=== PATIENT | female | born 1975 ===

== ENCOUNTER 2020-01-30 19:49 | Inpatient (IN) | payer MEDICAID, OTHER ==
[~2020-01-30] VITALS: Ht 160 cm; Wt 149.8 kg
--- NOTE | 2020-01-30 19:56 | NUR ---
BIB EMS TRANSFERRED FROM [facility] FOR THROMBOCYTOPENIA. PT. STATES SHE PRESENTED THERE WITH FATIGUE, WEAKNESS FOLLOWING HEAVY MENSTRAL CYCLE. WAS SENT TO ED AT [facility] BY DR SONG FOR LABS DUE TO HX OF THROMBOCYTOPENIA. MONITORS CONNECTED. WARM BLANKET PROVIDED
[2020-01-30] MEDS ORDERED: IMMUNE GLOB (GAMUNEX) 10GM/100ML IVPB ONE (21:00)
--- NOTE | 2020-01-30 21:19 | NUR ---
PT RESTING ON [employer]. VSS. NAD. STATES NO ADDITIONAL NEEDS AT THIS TIME.
--- NOTE | 2020-01-30 21:20 | NUR ---
REPORT GIVEN TO KATRIN RN, ONC
[2020-01-30] MEDS ORDERED: ONDANSETRON ODT 4 MG PO PRN (21:30)
[2020-01-30] MEDS ORDERED: BISACODYL 10 MG SUPP PR PRN (21:30)
[2020-01-30] MEDS ORDERED: POLYETHYLENE GLYCOL 17 GM PACKET PO PRN (21:30)
[2020-01-30 22:05] VITALS: BP 150/90
[2020-01-30] MEDS: SODIUM CHLORIDE FLUSH 10ML SYR IVF SCH (22:46)
[2020-01-31 01:34] VITALS: BP 129/75
[2020-01-31] MEDS: ACETAMINOPHEN 325 MG TABLET PO PRN ×2 (04:40→17:10)
[2020-01-31 05:28] LABS: BASOPHILS % (AUTO) 0 % (0-1); EOSINOPHILS % (AUTO) 0 % (1-7); LYMPHOCYTES % (AUTO) 10 % (22-44); MEAN CORPUSCULAR HEMOGLOBIN 28.6 pg (27.0-34.8); MEAN CORPUSCULAR HGB CONC 33.8 g/dL (32.4-35.8); MEAN PLATELET VOLUME 10.9 fL (7.4-10.4); MONOCYTES % (AUTO) 2 % (2-9); NEUTROPHILS % (AUTO) 88 % (42-75); RED BLOOD COUNT 4.72 x10^6/uL (3.82-5.3); RED CELL DISTRIBUTION WIDTH 14.6 % (9.6-15.2)
[2020-01-31 05:33] LABS: ANION GAP 4 mmol/L (5-15); CALCIUM 8.5 mg/dL (8.5-10.1); CHLORIDE 110 mmol/L (98-107); CREATININE 0.82 mg/dL (0.55-1.02)
[2020-01-31 05:41] LABS: PLATELET COUNT 32 x10^3/uL (130-400)
[2020-01-31 08:02] VITALS: BP 134/74
[2020-01-31 09:00] LABS: MD SCAN
[2020-01-31] MEDS: SODIUM CHLORIDE FLUSH 10ML SYR IVF SCH ×2 (09:00→21:00)
[2020-01-31] MEDS: SENNA/DOCUSATE TABLET PO SCH (09:14)
[2020-01-31] MEDS: methylPREDNISolone SOD SUCC 125 MG/2 ML IVPush SCH (09:14)
[2020-01-31 13:19] VITALS: BP 137/78
[2020-01-31 18:52] VITALS: BP 149/78
[2020-01-31] MEDS ORDERED: IMMUNE GLOB (GAMUNEX) 10GM/100ML IVPB SCH (21:00)
[2020-01-31] MEDS ORDERED: IMMUNE GLOB (GAMUNEX) 10GM/100ML IVPB ONE (22:00)
[2020-02-01 01:45] VITALS: BP 125/68
[2020-02-01] MEDS: ACETAMINOPHEN 325 MG TABLET PO PRN ×2 (03:12→09:27)
[2020-02-01 07:10] VITALS: BP 105/66
[2020-02-01 08:59] LABS: BASOPHILS % (AUTO) 0 % (0-1); EOSINOPHILS % (AUTO) 1 % (1-7); LYMPHOCYTES % (AUTO) 15 % (22-44); MEAN CORPUSCULAR HEMOGLOBIN 28.4 pg (27.0-34.8); MEAN CORPUSCULAR HGB CONC 33.4 g/dL (32.4-35.8); MEAN PLATELET VOLUME 9.4 fL (7.4-10.4); MONOCYTES % (AUTO) 7 % (2-9); NEUTROPHILS % (AUTO) 76 % (42-75); PLATELET COUNT 83 x10^3/uL (130-400); RED BLOOD COUNT 4.38 x10^6/uL (3.82-5.3); RED CELL DISTRIBUTION WIDTH 14.8 % (9.6-15.2)
[2020-02-01 09:04] LABS: MD NO
[2020-02-01 09:09] LABS: ALBUMIN 2.6 g/dL (3.4-5.0); ANION GAP 2 mmol/L (5-15); CALCIUM 7.7 mg/dL (8.5-10.1); CHLORIDE 112 mmol/L (98-107)
[2020-02-01 09:13] LABS: ALANINE AMINOTRANSFERASE 43 U/L (12-78); ALKALINE PHOSPHATASE 54 U/L (45-117); BILIRUBIN,TOTAL 0.2 mg/dL (0.2-1.0); CREATININE 0.84 mg/dL (0.55-1.02); TOTAL PROTEIN 10.7 g/dL (6.4-8.2)
[2020-02-01] MEDS: methylPREDNISolone SOD SUCC 125 MG/2 ML IVPush SCH (09:28)
[2020-02-01] MEDS: SENNA/DOCUSATE TABLET PO SCH (09:28)
[2020-02-01] MEDS: SODIUM CHLORIDE FLUSH 10ML SYR IVF SCH (09:51)
[2020-02-01] MEDS ORDERED: PRED20TA PO (11:30)
== END 2020-02-01 12:40 | disposition home or self-care (01) | DRG 661 ==
LOC: ED 20:18 → EDIP 20:43 → 4NW 21:38 → DCLOUNGE 02-01 12:32
PROVIDERS: ADMIT Family Medicine; ATTEND Family Medicine
PROC: 30233S1 Transfusion of Nonautologous Globulin into Peripheral Vein, Percutaneous Approach (ICD-10-PCS; principal; 2020-01-31)
DX: D69.3 Immune thrombocytopenic purpura (principal); N93.9 Abnormal uterine and vaginal bleeding, unspecified; E66.01 Morbid (severe) obesity due to excess calories; F17.210 Nicotine dependence, cigarettes, uncomplicated; M06.9 Rheumatoid arthritis, unspecified; Z80.6 Family history of leukemia; Z82.61 Family history of arthritis; Z68.43 Body mass index [BMI] 50.0-59.9, adult; Z90.49 Acquired absence of other specified parts of digestive tract; Z88.8 Allergy status to other drugs, medicaments and biological substances; Z79.899 Other long term (current) drug therapy; Z79.891 Long term (current) use of opiate analgesic; Z79.01 Long term (current) use of anticoagulants
CPT/HCPCS: 36415; 80048; 80053; 85025; G0378; J1561; J2930